=== PATIENT | female | born 1975 | race Caucasian/White ===

== ENCOUNTER 2019-01-22 11:51 | Outpatient (CLI) | payer OTHER ==
--- NOTE | 2019-02-03 15:13 | Diagnostic Imaging Report ---
CRYSTAL REESE [facility] [address] [facility] [address] [place], [place]. [address] Report Submission Date: Jan 22, 2019 12:43:25 PM CDT Patient Study Name: ESTEFANY MURPHY Date: Jan 22, 2019 12:00:26 PM CDT Modality Type: CT\SR Gender: F Description: CT A/P W/O : 71 Institution: [facility] Physician: CRYSTAL REESE Exam: CT abdomen and pelvis without contrast. History: Left flank pain. Axial images through the abdomen and pelvis without oral or IV contrast are submitted along with sagittal and coronal reformatted images. The visualized lower lung singh are clear. No free intraperitoneal air is identified. The gallbladder is distended without stones. The liver, spleen and pancreas are normal attenuation. The adrenal glands are normal configuration. The abdominal aorta is of normal caliber. No periaortic lymphadenopathy is identified. Both kidneys are normal attenuation. No hydronephrosis is identified. The urinary bladder is distended without trabeculation. The uterus is retroflexed but otherwise normal in attenuation. No free cul-de-sac fluid is identified. No bony abnormalities are identified. The small bowel is of normal caliber. Air and stool seen throughout the large intestine. The appendix is of normal configuration. No inflammatory changes in the mesentery or ascites is identified. Impression: Solid organs of the abdomen are normal attenuation. No hydronephrosis or renal stones are identified. Retroflexed uterus. Nonspecific bowel gas pattern. No inflammatory changes in the mesentery or ascites is noted. Electronically signed on Jan 22, 2019 12:43:25 PM CDT by: Fortino FANG
== END 2019-01-22 12:05 ==
LOC: RAD 11:51
PROVIDERS: ATTEND Family Medicine
DX: R10.9 Unspecified abdominal pain (principal)
CPT/HCPCS: 74176